=== PATIENT | female | born 1975 | race African-American/Black ===

== ENCOUNTER 2017-08-02 10:21 | Inpatient (IN) | payer OTHER ==
[~2017-08-02] VITALS: Ht 170.2 cm; Wt 69.4 kg
[~2017-08-02 10:21] MED LIST: COR3 PO; FE300LUD PO; INSLAN; INSLAN SQ; MONT5TAB13; MULT-1146 PO; PROAIR
[2017-08-02] MEDS ORDERED: LORAZEPAM 2MG/ML CPJ IV ONE ×2 (10:30→11:15)
[2017-08-02] MEDS ORDERED: ONDANSETRON HCL 4MG/2ML VIAL IV STA (10:30)
[2017-08-02] MEDS ORDERED: SODIUM CHLORIDE 0.9% 1,000 ML IV ONE (10:30)
[2017-08-02] MEDS ORDERED: KETOROLAC 30MG/ML VIAL IV STA (10:30)
[2017-08-02 10:52] LABS: BASOPHILS % 0.8 % (0.0-2.0); EOSINOPHILS % 0.4 % (0.0-5.0); HEMOGLOBIN. 12.9 g/dL (12.0-16.0); LYMPHOCYTES % 18.1 % (20.0-50.0); MEAN CORPUSCULAR HEMOGLOBIN 28.9 pg (28.0-32.0); MEAN CORPUSCULAR VOLUME 100.7 fL (81.0-99.0); MEAN PLATELET VOLUME 8.3 fl (7.4-10.4); MONOCYTES % 4.4 % (2.0-8.0); NEUTROPHILS % 76.3 % (40.0-76.0); PLATELET 277 x1000/uL (130-400); RED BLOOD CELL COUNT 4.47 mill/uL (4.2-5.4); RED CELL DISTRIBUTION WIDTH 26.6 % (11.6-14.6)
[2017-08-02 10:58] LABS: CHLORIDE 98 mEq/L (98-107)
[2017-08-02 11:07] LABS: ETHANOL BLOOD < 10 mg/dL
[2017-08-02 11:10] LABS: CARBON DIOXIDE 3 mEq/L (21-32)
[2017-08-02 11:15] LABS: PLATELET ESTIMATE NORMAL
[2017-08-02] MEDS ORDERED: INSULIN REGULAR (DRIP) 100 UNITS in SODIUM CHLORIDE 0.9% 100 ML IV ONE ×2 (11:15→15:45)
[2017-08-02] MEDS ORDERED: INSULIN REGULAR (HUMULIN R) UD 100 UNITS/ML SYR IV ONE (11:15)
[2017-08-02 11:18] LABS: PROTHROMBIN TIME 10.6 sec (9.4-11.6)
[2017-08-02 11:26] LABS: BETA HYDROXYBUTYRATE 11.9 mMol/L (0.0-0.3)
[2017-08-02] MEDS ORDERED: MIDAZOLAM HCL 2 MG/2 ML VIAL IM ONE (11:30)
[2017-08-02] MEDS ORDERED: INSULIN REGULAR (DRIP) 100 UNITS in SODIUM CHLORIDE 0.9% 99 ML IV ONE (12:15)
[2017-08-02 12:36] LABS: *AMPHETAMINES SCREEN URINE NEGATIVE (NEGATIVE); *BARBITURATES SCREEN URINE NEGATIVE (NEGATIVE); *BENZODIAZEPINES SCREEN URINE NEGATIVE (NEGATIVE); *COCAINE SCREEN URINE NEGATIVE (NEGATIVE); CANNABINOID URINE SCREEN NEGATIVE (NEGATIVE); METHADONE URINE SCREEN NEGATIVE (NEGATIVE); OPIATES URINE SCREEN NEGATIVE (NEGATIVE); PHENCYCLIDINE URINE SCREEN NEGATIVE (NEGATIVE)
[2017-08-02] MEDS ORDERED: INSULIN REGULAR (HUMULIN R) 300UNITS/3ML IV ONE (13:45)
[2017-08-02] MEDS ORDERED: SODIUM CHLORIDE 0.9% 1,000 ML IV SCH (15:23)
[2017-08-02] MEDS ORDERED: DEXT 5%/0.45% NACL 1000ML 1,000 ML IV SCH (15:23)
[2017-08-02] MEDS ORDERED: IPRATROPIUM/ALBUTEROL 0.5-3(2.5)MG/3ML NEB INH PRN (15:30)
[2017-08-02] MEDS ORDERED: ONDANSETRON HCL 4MG/2ML VIAL IV PRN (15:30)
[2017-08-02] MEDS ORDERED: DEXTROSE 50% WATER 50ML SYRINGE IV PRN (15:30)
[2017-08-02] MEDS ORDERED: VANCOMYCIN 1 G PREMIX 200 ML IV SCH (15:30)
[2017-08-02 16:09] LABS: BG BASE EXCESS -31.4 mmol/L (-2.0-2.0); BG CARBOXYHEMOGLOBIN 0.5 % (0.5-1.5); BG DEOXYHEMOGLOBIN 1.9 % (0.0-5.0); BG FRACTION INSPIRED OXYGEN 21; BG HCO3 ACT 2.1 mmol/L (22.0-26.0); BG METHEMOGLOBIN 0.2 % (0.0-1.5); BG OXYGEN SATURATION 98.1 % (92.0-98.5); BG OXYHEMOGLOBIN 97.4 % (94.0-97.0); BG PCO2 13.6 mmHg (35.0-45.0); BG PH 6.805 (7.350-7.450); BG PO2 157.9 mmHg (75.0-100.0); BG SAMPLE SITE RIGHT RADIAL; BG TOTAL HEMOGLOBIN 12.9 g/dL (12.0-18.0); BG VENT MODE ROOM AIR
[2017-08-02 18:41] LABS: HEMATOCRIT 38.6 % (36.0-48.0); MEAN CORPUSCULAR HEMOGLOBIN 29.2 pg (28.0-32.0); MEAN CORPUSCULAR VOLUME 93.6 fL (81.0-99.0); PLATELET 207 x1000/uL (130-400); RED BLOOD CELL COUNT 4.12 mill/uL (4.2-5.4)
[2017-08-02 18:48] LABS: CHLORIDE 113 mEq/L (98-107)
[2017-08-02 18:51] LABS: CARBON DIOXIDE 4 mEq/L (21-32)
[2017-08-02 23:04] LABS: CREATINE KINASE 176 IU/L (26-192); TROPONIN I < 0.02 ng/mL (0.00-0.04)
[2017-08-02 23:15] VITALS: BP 55/35
[2017-08-02 23:19] VITALS: BP 142/89
[2017-08-02 23:30] VITALS: BP_SYST 140; BP_SYST 142; BP_DIAS 79; BP_DIAS 89
[2017-08-02] MEDS: BLOOD SUGAR DIAGNOSTIC STRIP TEST SCH (23:30)
[2017-08-02 23:45] VITALS: BP 132/90
[2017-08-02] MEDS ORDERED: SODIUM BICARBONATE 8.4% 1 MEQ/ML 50ML SYR IV NR (23:45)
[2017-08-03] VITALS (80 sets, daily range): BP systolic 106–190; BP diastolic 40–108
[2017-08-03] MEDS: BLOOD SUGAR DIAGNOSTIC STRIP TEST SCH ×24 (00:30→23:40)
[2017-08-03] MEDS: PIPERACILLIN/TAZ 3.375G PREMIX 50 ML IV SCH ×4 (01:38→21:03)
[2017-08-03] MEDS ORDERED: VANCOMYCIN 1,500 MG in SODIUM CHLORIDE 0.9% 250 ML IV NR (02:00)
[2017-08-03 02:30] LABS: CHLORIDE 113 mEq/L (98-107)
[2017-08-03 02:41] LABS: CARBON DIOXIDE 8 mEq/L (21-32)
[2017-08-03] MEDS ORDERED: MORPHINE SULFATE 2 MG/ML CPJ (NOT FOR IM USE) IV PRN (04:15)
[2017-08-03] MEDS ORDERED: MORPHINE SULFATE 4 MG/ML CPJ (NOT FOR IM USE) IV PRN (05:04)
[2017-08-03] MEDS: DEXT 5%/0.45% NACL 500ML 1,000 ML IV SCH ×3 (05:59→21:03)
[2017-08-03 07:45] LABS: CHLORIDE 115 mEq/L (98-107); CREATINE KINASE 136 IU/L (26-192); HDL CHOLESTEROL 62 mg/dL (40-59); LDL CHOLESTEROL 112 mg/dL (5-100); TROPONIN I < 0.02 ng/mL (0.00-0.04)
[2017-08-03 07:54] LABS: CARBON DIOXIDE 7 mEq/L (21-32)
[2017-08-03 08:02] LABS: HEMATOCRIT. 38.6 % (36.0-48.0); HEMOGLOBIN. 12.5 g/dL (12.0-16.0); MEAN CORPUSCULAR HEMOGLOBIN 29.2 pg (28.0-32.0); MEAN PLATELET VOLUME 8.4 fl (7.4-10.4); PLATELET 222 x1000/uL (130-400); RED BLOOD CELL COUNT 4.28 mill/uL (4.2-5.4); RED CELL DISTRIBUTION WIDTH 25.9 % (11.6-14.6)
[2017-08-03] MEDS: INSULIN REGULAR (DRIP) 100 UNITS in SODIUM CHLORIDE 0.9% 99 ML IV PRN (08:23)
[2017-08-03 10:05] LABS: BG BASE EXCESS -13.6 mmol/L (-2.0-2.0); BG CARBOXYHEMOGLOBIN 0.7 % (0.5-1.5); BG DEOXYHEMOGLOBIN 2.1 % (0.0-5.0); BG FRACTION INSPIRED OXYGEN 21; BG HCO3 ACT 10.5 mmol/L (22.0-26.0); BG METHEMOGLOBIN 0.2 % (0.0-1.5); BG OXYGEN SATURATION 97.9 % (92.0-98.5); BG PCO2 21.4 mmHg (35.0-45.0); BG PH 7.309 (7.350-7.450); BG PO2 110.6 mmHg (75.0-100.0); BG SAMPLE SITE RIGHT BRACHIAL; BG TOTAL HEMOGLOBIN 13.5 g/dL (12.0-18.0); BG VENT MODE ROOM AIR
[2017-08-03 10:44] LABS: PLATELET ESTIMATE NORMAL
[2017-08-03] MEDS ORDERED: SODIUM BICARBONATE 8.4% 1 MEQ/ML 50ML SYR IV NR (11:32)
[2017-08-03 12:18] LABS: GLUCOSE URINE 1+ (NEGATIVE); KETONES URINE 3+ (NEGATIVE); LEUKOCYTE ESTERASE URINE NEGATIVE (NEGATIVE); NITRITE URINE NEGATIVE (NEGATIVE); OCCULT BLOOD URINE 2+ (NEGATIVE); PROTEIN URINE 2+ (NEGATIVE); SPECIFIC GRAVITY URINE 1.035 (1.005-1.030)
[2017-08-03 12:29] LABS: CLARITY URINE CLOUDY (CLEAR); COLOR URINE YELLOW (YELLOW)
[2017-08-03 12:43] LABS: CHLORIDE 118 mEq/L (98-107)
[2017-08-03 12:48] LABS: CARBON DIOXIDE 15 mEq/L (21-32)
[2017-08-03] MEDS: VANCOMYCIN 1,250 MG in SODIUM CHLORIDE 0.9% 250 ML IV SCH (14:21)
[2017-08-03 15:35] LABS: CLARITY URINE CLEAR (CLEAR); COLOR URINE YELLOW (YELLOW); GLUCOSE URINE 3+ (NEGATIVE); KETONES URINE 4+ (NEGATIVE); LEUKOCYTE ESTERASE URINE NEGATIVE (NEGATIVE); NITRITE URINE NEGATIVE (NEGATIVE); OCCULT BLOOD URINE 2+ (NEGATIVE); PROTEIN URINE 1+ (NEGATIVE); SPECIFIC GRAVITY URINE 1.028 (1.005-1.030); UROBILINOGEN URINE 0.2 E.U./dL (0.2-1.0)
[2017-08-03] MEDS ORDERED: SODIUM CHLORIDE 0.9% 1,000 ML IV NR (16:15)
[2017-08-03 18:51] LABS: CARBON DIOXIDE 17 mEq/L (21-32); CHLORIDE 117 mEq/L (98-107)
[2017-08-04] VITALS (23 sets, daily range): BP systolic 109–151; BP diastolic 43–98
[2017-08-04] MEDS: BLOOD SUGAR DIAGNOSTIC STRIP TEST SCH ×22 (00:29→23:58)
[2017-08-04 01:26] LABS: CHLORIDE 120 mEq/L (98-107)
[2017-08-04 01:31] LABS: CARBON DIOXIDE 14 mEq/L (21-32)
[2017-08-04] MEDS: VANCOMYCIN 1,250 MG in SODIUM CHLORIDE 0.9% 250 ML IV SCH (02:05)
[2017-08-04] MEDS: INSULIN REGULAR (DRIP) 100 UNITS in SODIUM CHLORIDE 0.9% 99 ML IV PRN ×2 (04:34→22:03)
[2017-08-04] MEDS: PIPERACILLIN/TAZ 3.375G PREMIX 50 ML IV SCH ×3 (06:01→22:00)
[2017-08-04 06:44] LABS: CARBON DIOXIDE 18 mEq/L (21-32); CHLORIDE 120 mEq/L (98-107)
[2017-08-04] MEDS ORDERED: POTASSIUM CHLORIDE 20MEQ TABLET SR PO SCH (08:00)
[2017-08-04] MEDS: DEXT 5%/0.45% NACL 500ML 1,000 ML IV SCH ×3 (08:40→22:00)
[2017-08-04 12:39] LABS: CHLORIDE 119 mEq/L (98-107)
[2017-08-04 12:46] LABS: CARBON DIOXIDE 17 mEq/L (21-32); VANCOMYCIN TROUGH 19.7 ug/mL (5.0-10.0)
[2017-08-04] MEDS ORDERED: KCL 20MEQ/100ML PREMIX 100 ML IV ONE (13:45)
[2017-08-04] MEDS ORDERED: POTASSIUM CHLORIDE INJ 40 MEQ in SODIUM CHLORIDE 0.9% 250 ML IV SCH (16:00)
[2017-08-04] MEDS: VANCOMYCIN 1 G PREMIX 200 ML IV SCH (18:22)
[2017-08-04 19:16] LABS: CARBON DIOXIDE 17 mEq/L (21-32); CHLORIDE 119 mEq/L (98-107)
[2017-08-05] VITALS (25 sets, daily range): BP systolic 97–149; BP diastolic 34–96
[2017-08-05] MEDS: BLOOD SUGAR DIAGNOSTIC STRIP TEST SCH ×23 (00:52→23:48)
[2017-08-05] MEDS: DEXT 5%/0.45% NACL 500ML 1,000 ML IV SCH (05:17)
[2017-08-05] MEDS: PIPERACILLIN/TAZ 3.375G PREMIX 50 ML IV SCH ×3 (05:17→22:26)
[2017-08-05] MEDS: VANCOMYCIN 1 G PREMIX 200 ML IV SCH ×2 (05:27→17:56)
[2017-08-05 06:12] LABS: HEMATOCRIT 34.7 % (36.0-48.0); HEMOGLOBIN 11.5 g/dL (12.0-16.0); MEAN CORPUSCULAR HEMOGLOBIN 28.9 pg (28.0-32.0); MEAN CORPUSCULAR VOLUME 87.6 fL (81.0-99.0); PLATELET 135 x1000/uL (130-400); RED BLOOD CELL COUNT 3.96 mill/uL (4.2-5.4); RED CELL DISTRIBUTION WIDTH 26.5 % (11.6-14.6)
[2017-08-05 06:43] LABS: CARBON DIOXIDE 16 mEq/L (21-32); CHLORIDE 118 mEq/L (98-107)
[2017-08-05] MEDS ORDERED: POTASSIUM CHLORIDE INJ 60 MEQ in DEXT 5% WATER 500 ML IV SCH (10:00)
[2017-08-05 11:36] LABS: PHOSPHORUS 1.2 mg/dL (2.5-4.9)
[2017-08-05] MEDS: SODIUM CHLORIDE 0.9% 1,000 ML IV SCH ×2 (13:56→22:26)
[2017-08-05] MEDS ORDERED: MAGNESIUM 2 G PREMIX 50 ML IV NR (14:00)
[2017-08-05 15:42] LABS: CHLORIDE 118 mEq/L (98-107)
[2017-08-05 15:47] LABS: CARBON DIOXIDE 16 mEq/L (21-32)
[2017-08-05 18:57] LABS: CARBON DIOXIDE 18 mEq/L (21-32); CHLORIDE 118 mEq/L (98-107)
[2017-08-05] MEDS: INSULIN REGULAR (DRIP) 100 UNITS in SODIUM CHLORIDE 0.9% 99 ML IV PRN (20:07)
[2017-08-06] VITALS (13 sets, daily range): BP systolic 102–145; BP diastolic 60–101
[2017-08-06] MEDS: BLOOD SUGAR DIAGNOSTIC STRIP TEST SCH ×11 (00:38→21:00)
[2017-08-06 01:02] LABS: CHLORIDE 118 mEq/L (98-107)
[2017-08-06 01:11] LABS: CARBON DIOXIDE 16 mEq/L (21-32)
[2017-08-06 05:58] LABS: CARBON DIOXIDE 19 mEq/L (21-32); CHLORIDE 118 mEq/L (98-107); VANCOMYCIN TROUGH 16.2 ug/mL (5.0-10.0)
[2017-08-06] MEDS: DEXTROSE 50% WATER 50ML SYRINGE IV PRN (06:05)
[2017-08-06] MEDS: PIPERACILLIN/TAZ 3.375G PREMIX 50 ML IV SCH ×3 (06:06→23:42)
[2017-08-06] MEDS: VANCOMYCIN 1 G PREMIX 200 ML IV SCH ×2 (06:06→19:09)
[2017-08-06] MEDS ORDERED: POTASSIUM CHLORIDE 20MEQ TABLET SR PO NR (08:15)
[2017-08-06] MEDS ORDERED: DEXTROSE 50% WATER 50ML SYRINGE IV PRN (08:15)
[2017-08-06] MEDS: INSULIN LISPRO 100 UNITS/ML SUBCUT SCH ×6 (08:20→21:59)
[2017-08-06] MEDS: INSULIN DETEMIR UD 100 UNITS/ML SYR SUBCUT SCH ×2 (09:57→21:58)
[2017-08-06] MEDS ORDERED: INSULIN DETEMIR UD 100 UNITS/ML SYR SUBCUT SCH (10:00)
[2017-08-06 12:41] LABS: CARBON DIOXIDE 19 mEq/L (21-32); CHLORIDE 116 mEq/L (98-107)
[2017-08-07] VITALS: BP 141/90
[2017-08-07 04:00] VITALS: BP 146/98
[2017-08-07] MEDS: BLOOD SUGAR DIAGNOSTIC STRIP TEST SCH (05:59)
[2017-08-07] MEDS: DEXTROSE 50% WATER 50ML SYRINGE IV PRN (06:00)
[2017-08-07] MEDS: PIPERACILLIN/TAZ 3.375G PREMIX 50 ML IV SCH (07:54)
[2017-08-07] MEDS: INSULIN LISPRO 100 UNITS/ML SUBCUT SCH ×2 (08:55→08:56)
[2017-08-07] MEDS: VANCOMYCIN 1 G PREMIX 200 ML IV SCH (09:04)
[2017-08-07] MEDS: INSULIN DETEMIR UD 100 UNITS/ML SYR SUBCUT SCH (10:11)
[2017-08-07 11:50] VITALS: BP 135/91
== END 2017-08-07 11:53 | disposition home or self-care (01) | DRG 141 ==
LOC: ER 10:39 → CVICU 11:56 → ENRESERV 22:06 → 6EST 08-06 10:45
PROVIDERS: ADMIT Internal Medicine; ATTEND Internal Medicine
DX: J45.901 Unspecified asthma with (acute) exacerbation (principal); J96.00 Acute respiratory failure, unspecified whether with hypoxia or hypercapnia; G93.41 Metabolic encephalopathy; E10.10 Type 1 diabetes mellitus with ketoacidosis without coma; I95.9 Hypotension, unspecified; E87.5 Hyperkalemia; K80.20 Calculus of gallbladder without cholecystitis without obstruction; D72.829 Elevated white blood cell count, unspecified; Z82.49 Family history of ischemic heart disease and other diseases of the circulatory system; Z83.3 Family history of diabetes mellitus; Z79.4 Long term (current) use of insulin; Z82.5 Family history of asthma and other chronic lower respiratory diseases; Z87.891 Personal history of nicotine dependence
CPT/HCPCS: 36415; 36600; 70450; 71010; 74176; 76770; 80048; 80053; 80061; 80202; 80305; 81001; 82010; 82375; 82550; 82805; 82962; 83690; 83735; 84100; 84443; 84484; 85025; 85027; 85610; 87040; 87086; 93970; 94664; 96361; 96374; 96375; 97116; 97162; 97535; 99291; G0482; J1815; J1885; J2060; J2250; J2270; J2405; J2543; J3370; J3475; J3480; J3490; J7030; J7040; J7050; J7060; J7620

== ENCOUNTER 2024-05-18 19:52 | Inpatient (IN) | payer MEDICAID ==
[~2024-05-18] VITALS: Ht 167.6 cm; Wt 67.0 kg
[2024-05-18] MEDS: ALBUTEROL (0.083%) 2.5MG/3ML NEB HHN ONE (01:22)
[~2024-05-18 19:52] MED LIST changes: +AMLO10TA80 MT; -INSLAN; -MONT5TAB13; +MONT5TAB79; -PROAIR
[2024-05-18] MEDS: MORPHINE SULFATE 2 MG/ML INJ (NOT FOR IM USE) IV ONE (20:43)
[2024-05-18] MEDS: ONDANSETRON HCL 4MG/2ML INJ IV ONE (20:55)
[2024-05-18] MEDS: LACTATED RINGERS 1,000 ML IV SCH ×3 (20:55→23:39)
[2024-05-18 21:22] LABS: BASOPHILS % 0.5 % (0.0-2.0); DIFFERENTIAL COMMENT 0; EOSINOPHILS % 0.2 % (0.0-5.0); HEMATOCRIT. 46.5 % (36.0-48.0); HEMOGLOBIN. 13.4 g/dL (12.0-16.0); LYMPHOCYTES % 13.2 % (20.0-50.0); MEAN CORPUSCULAR HEMOGLOBIN 28.2 pg (28.0-32.0); MEAN CORPUSCULAR HGB CONC 28.7 g/dL (31.0-37.0); MEAN CORPUSCULAR VOLUME 98.3 fL (81.0-99.0); MEAN PLATELET VOLUME 9.6 fl (7.4-10.4); MONOCYTES % 7.8 % (2.0-8.0); NEUTROPHILS % 78.3 % (40.0-76.0); PLATELET 195 x1000/uL (130-400); RED BLOOD CELL COUNT 4.73 mill/uL (4.2-5.4); RED CELL DISTRIBUTION WIDTH 17.2 % (11.6-14.6); WHITE BLOOD COUNT 9.6 x1000/uL (4.5-11.0)
[2024-05-18 21:29] LABS: CHLORIDE 104 mEq/L (98-107); SODIUM 132 mEq/L (136-145)
[2024-05-18 21:30] LABS: CALCIUM 9.5 mg/dL (8.7-10.4)
[2024-05-18 21:35] LABS: UREA NITROGEN BLOOD 28 mg/dL (9-23)
[2024-05-18 21:36] LABS: TROPONIN I HIGH SENSITIVITY 7 ng/L (3.0-34)
[2024-05-18 21:37] LABS: PHOSPHORUS 6.2 mg/dL (2.5-4.9)
[2024-05-18 21:41] LABS: CARBON DIOXIDE < 10 mEq/L (21-32); POTASSIUM 6.7 mEq/L (3.5-5.1)
[2024-05-18 21:42] LABS: CREATININE 1.7 mg/dL (0.6-1.0); GLUCOSE 531 mg/dL (70-105)
[2024-05-18 21:47] LABS: BETA HYDROXYBUTYRATE 14.9 mMol/L (0.0-0.3)
[2024-05-18] MEDS ORDERED: KCL 20MEQ/100ML PREMIX 100 ML IV PRN (22:00)
[2024-05-18] MEDS ORDERED: DEXTROSE 50% WATER 50ML SYRINGE IV PRN (22:00)
[2024-05-18] MEDS ORDERED: POTASSIUM CHLORIDE 40 MEQ in SODIUM CHLORIDE 0.9% 230 ML IV PRN (22:00)
[2024-05-18] MEDS ORDERED: SODIUM PHOSPHATE 15 MMOL in SODIUM CHLORIDE 0.9% 245 ML IV PRN (22:00)
[2024-05-18] MEDS ORDERED: MAGNESIUM 2 G PREMIX 50 ML IV PRN (22:00)
[2024-05-18] MEDS ORDERED: INSULIN REGULAR (DRIP) 100 UNITS in SODIUM CHLORIDE 0.9% 99 ML IV SCH (22:00)
[2024-05-18] MEDS: INSULIN REGULAR (HUMULIN R) 1000UNITS/10ML VIAL IV ONE (22:17)
[2024-05-18] MEDS: DEXT 5%/LACTATED RINGERS 1,000 ML IV SCH (22:52)
[2024-05-18] MEDS: CALCIUM GLUCONATE 100MG/ML 10ML VIAL IV ONE (22:52)
[2024-05-18] MEDS: BLOOD SUGAR DIAGNOSTIC STRIP TEST PRN (23:40)
[2024-05-19] MEDS: INSULIN REGULAR 100U/100ML PMX 100 ML IV SCH (01:25)
[2024-05-19 01:57] VITALS: PULSE 84; RESP 13; O2SAT 99
[2024-05-19] MEDS: ALBUTEROL (0.083%) 2.5MG/3ML NEB HHN NR (01:57)
[2024-05-19 02:33] LABS: CHLORIDE 106 mEq/L (98-107); POTASSIUM 5.6 mEq/L (3.5-5.1); SODIUM 135 mEq/L (136-145)
[2024-05-19 02:34] LABS: CALCIUM 10.5 mg/dL (8.7-10.4)
[2024-05-19 02:39] LABS: CREATININE 1.6 mg/dL (0.6-1.0); UREA NITROGEN BLOOD 34 mg/dL (9-23)
[2024-05-19 03:01] LABS: CARBON DIOXIDE < 10 mEq/L (21-32); GLUCOSE 443 mg/dL (70-105)
[2024-05-19 06:43] LABS: CHLORIDE 106 mEq/L (98-107); SODIUM 133 mEq/L (136-145)
[2024-05-19 06:49] LABS: CREATININE 1.5 mg/dL (0.6-1.0); GLUCOSE 325 mg/dL (70-105); UREA NITROGEN BLOOD 29 mg/dL (9-23)
[2024-05-19 06:51] LABS: PHOSPHORUS 4.4 mg/dL (2.5-4.9)
[2024-05-19 09:11] LABS: CARBON DIOXIDE < 10 mEq/L (21-32)
[2024-05-19 13:03] LABS: BASOPHILS % 0.5 % (0.0-2.0); EOSINOPHILS % 0.1 % (0.0-5.0); HEMATOCRIT. 42.3 % (36.0-48.0); LYMPHOCYTES % 9.2 % (20.0-50.0); MEAN CORPUSCULAR HEMOGLOBIN 28.7 pg (28.0-32.0); MEAN CORPUSCULAR HGB CONC 33.1 g/dL (31.0-37.0); MEAN CORPUSCULAR VOLUME 86.8 fL (81.0-99.0); MEAN PLATELET VOLUME 8.5 fl (7.4-10.4); MONOCYTES % 8.1 % (2.0-8.0); NEUTROPHILS % 82.1 % (40.0-76.0); PLATELET 172 x1000/uL (130-400); RED BLOOD CELL COUNT 4.88 mill/uL (4.2-5.4); RED CELL DISTRIBUTION WIDTH 16.2 % (11.6-14.6); WHITE BLOOD COUNT 8.6 x1000/uL (4.5-11.0)
[2024-05-19 13:09] LABS: CHLORIDE 109 mEq/L (98-107); POTASSIUM 4.8 mEq/L (3.5-5.1); SODIUM 135 mEq/L (136-145)
[2024-05-19 13:10] LABS: CARBON DIOXIDE 13 mEq/L (21-32)
[2024-05-19 13:15] LABS: CREATININE 1.6 mg/dL (0.6-1.0); GLUCOSE 95 mg/dL (70-105)
[2024-05-19 13:16] LABS: UREA NITROGEN BLOOD 32 mg/dL (9-23)
[2024-05-19 13:17] LABS: ALANINE AMINOTRANSFERASE 68 IU/L (10-49); ASPARTATE AMINOTRANSFERASE 151 IU/L (<34)
[2024-05-19 13:18] LABS: BILIRUBIN TOTAL 0.4 mg/dL (0.1-1.0); PROTEIN TOTAL 7.6 g/dL (6.0-8.3)
[2024-05-19] MEDS: HYDROCODONE/ACETAMINOPHEN 5/325MG TABLET PO NR (19:55)
[2024-05-19] MEDS: PANTOPRAZOLE SODIUM 40 MG/VIAL IV NR (19:55)
[2024-05-19 20:59] LABS: POTASSIUM 5.3 mEq/L (3.5-5.1)
[2024-05-19 21:01] LABS: CALCIUM 9.7 mg/dL (8.7-10.4)
[2024-05-19 21:06] LABS: CREATININE 1.6 mg/dL (0.6-1.0)
[2024-05-19] MEDS: DEXT 5%/0.45% NACL 1000ML 1,000 ML IV SCH (21:50)
[2024-05-20] MEDS: METOCLOPRAMIDE HCL 10MG/2ML VIAL IV SCH (01:13)
[2024-05-20 01:22] LABS: CHLORIDE 109 mEq/L (98-107); SODIUM 135 mEq/L (136-145)
[2024-05-20 01:24] LABS: CALCIUM 9.3 mg/dL (8.7-10.4)
[2024-05-20 01:28] LABS: CREATININE 1.6 mg/dL (0.6-1.0); GLUCOSE 331 mg/dL (70-105)
[2024-05-20 01:29] LABS: UREA NITROGEN BLOOD 33 mg/dL (9-23)
[2024-05-20 02:11] LABS: CARBON DIOXIDE < 10 mEq/L (21-32)
[2024-05-20 04:33] LABS: POTASSIUM 4.5 mEq/L (3.5-5.1)
[2024-05-20 04:35] LABS: CALCIUM 9.5 mg/dL (8.7-10.4)
[2024-05-20 04:40] LABS: CREATININE 1.6 mg/dL (0.6-1.0)
[2024-05-20 08:22] LABS: POTASSIUM 4.1 mEq/L (3.5-5.1)
[2024-05-20 08:24] LABS: CALCIUM 9.7 mg/dL (8.7-10.4)
[2024-05-20 08:28] LABS: CREATININE 1.5 mg/dL (0.6-1.0)
[2024-05-20] MEDS ORDERED: DEXTROSE 50% WATER 50ML SYRINGE IV PRN (09:45)
[2024-05-20] MEDS: BLOOD SUGAR DIAGNOSTIC STRIP TEST SCH (11:05)
[2024-05-20] MEDS: INSULIN GLARGINE 100 UNITS/ML SUBCUT NR (11:14)
[2024-05-20] MEDS: INSULIN LISPRO 100 UNITS/ML SUBCUT SCH (12:15)
[2024-05-20] MEDS ORDERED: INSU100I28 SQ ×2 (12:34)
[2024-05-20 13:29] LABS: POTASSIUM 4.8 mEq/L (3.5-5.1)
[2024-05-20 13:30] LABS: CALCIUM 9.7 mg/dL (8.7-10.4)
[2024-05-20 13:34] LABS: CREATININE 1.5 mg/dL (0.6-1.0)
[2024-05-20 13:55] VITALS: BP 138/75; PULSE 95; RESP 16; TEMP 97.4
== END 2024-05-20 13:56 | disposition home or self-care (01) | DRG 420 ==
LOC: ER 19:55 → 5WST 21:53 → EDBEDREQTM 22:14 → EDBEDREQ 22:14 → EDBEDREQSVC 05-20 09:49
PROVIDERS: ADMIT Internal Medicine; ATTEND Internal Medicine
DX: E11.10 Type 2 diabetes mellitus with ketoacidosis without coma (principal); N17.9 Acute kidney failure, unspecified; E87.5 Hyperkalemia; J45.909 Unspecified asthma, uncomplicated; I12.9 Hypertensive chronic kidney disease with stage 1 through stage 4 chronic kidney disease, or unspecified chronic kidney disease; E11.22 Type 2 diabetes mellitus with diabetic chronic kidney disease; N18.9 Chronic kidney disease, unspecified; Z79.4 Long term (current) use of insulin; Z79.899 Other long term (current) drug therapy
CPT/HCPCS: 36415; 71045; 80048; 82010; 82962; 83605; 83735; 84100; 84145; 84484; 85025; 93005; 99291; J0610; J1815; J2270; J2405; J2470; J2765; J7120; J7121